=== PATIENT | male | born 1950 | race Caucasian/White ===

== ENCOUNTER 2017-05-02 16:35 | Inpatient (IN) | payer MEDICARE, OTHER ==
[~2017-05-02] VITALS: Ht 177.8 cm; Wt 115.7 kg
[~2017-05-02 16:35] MED LIST: ASPI-621 PO; ASPI325T17 PO; CHOL100011 PO; CLON1TAB23 PO; DONE5TAB14 PO; ESOM20CA PO; HYDR25TA11 PO; IRBE300T16 PO; LAMO100T63 PO; METO-99 PO; METO25TA35 PO; OMEG1CAP34 PO; PARO40TA PO; POTA20TA91 PO; ROSU20TA PO; TICA90TA PO
[2017-05-02 18:04] LABS: HEMATOCRIT 45.7 % (39.2-51.8); HEMOGLOBIN 15.6 g/dL (13.7-18.0); WHITE BLOOD COUNT 7.2 x10^3/uL (3.4-10)
[2017-05-02 18:11] LABS: ASPARTATE AMINO TRANSFERASE 26 U/L (15-37); BLOOD UREA NITROGEN 9 mg/dL (7-18)
[2017-05-02 18:19] LABS: IS PT STATUS REG ER OR PRE ER? YES
[2017-05-02] MEDS ORDERED: ASPIRIN 81 MG TABLET CHEW ONE (18:23)
[2017-05-02] MEDS ORDERED: PARO40TA3 PO (18:57)
[2017-05-02] MEDS ORDERED: ATOR40TA78 PO (18:57)
[2017-05-02] MEDS ORDERED: METO25TA35 PO (18:57)
[2017-05-02] MEDS ORDERED: HYDR12.58 PO (18:57)
[2017-05-02] MEDS ORDERED: CLON-364 PO (18:57)
[2017-05-02] MEDS ORDERED: ESOM20CA PO (18:57)
[2017-05-02] MEDS ORDERED: CLOP75TA PO (18:57)
[2017-05-02] MEDS ORDERED: ASPI-496 PO (18:57)
[2017-05-02] MEDS ORDERED: DILT180C59 PO (18:57)
[2017-05-02] MEDS ORDERED: POTA20TA14 PO (18:57)
[2017-05-02] MEDS ORDERED: LAMO100T PO (18:57)
[2017-05-02] MEDS ORDERED: MULT-717 PO (18:57)
[2017-05-02] MEDS ORDERED: IRBE150T25 PO (18:57)
[2017-05-02] MEDS ORDERED: ASPIRIN 325 MG TABLET PO ONE (19:00)
[2017-05-02] MEDS ORDERED: ENOXAPARIN 120MG/0.8ML SQ ONE (19:30)
[2017-05-02 20:03] VITALS: BP 133/75
[2017-05-02 20:11] VITALS: BP 133/73
[2017-05-02] MEDS ORDERED: NITROGLYCERIN 0.4 MG BOTTLE (25 TABS) SL PRN (21:00)
[2017-05-02] MEDS ORDERED: POLYETHYLENE GLYCOL 17 GM PACKET PO PRN (21:00)
[2017-05-02] MEDS ORDERED: MORPHINE SULFATE 4 MG/ML, 1ML IVPush PRN (21:00)
[2017-05-02] MEDS ORDERED: ACETAMINOPHEN 325 MG TABLET PO PRN (21:00)
[2017-05-02] MEDS ORDERED: ONDANSETRON 2MG/ML, 2ML IVPush PRN (21:00)
[2017-05-02] MEDS ORDERED: BISACODYL 10 MG SUPP PR PRN (21:00)
[2017-05-02] MEDS: SODIUM CHLORIDE FLUSH 10ML SYR IVF SCH (22:16)
[2017-05-02] MEDS: POTASSIUM CHLORIDE 20 MEQ TAB.ER.PRT PO SCH (22:16)
[2017-05-02] MEDS: ATORVASTATIN 40 MG TABLET PO SCH (22:16)
[2017-05-02] MEDS ORDERED: TRAZ100T15 PO (22:18)
[2017-05-02 22:28] VITALS: BP_SYST 111; BP_SYST 129; BP_SYST 138; BP_DIAS 73; BP_DIAS 75; BP_DIAS 84
[2017-05-02] MEDS ORDERED: TRAZ50TA18 PO (22:45)
[2017-05-02] MEDS ORDERED: TRAZODONE 50MG TABLET ONE (22:48)
[2017-05-02] MEDS: TRAZODONE 50MG TABLET PO PRN (22:51)
[2017-05-03 00:48] VITALS: BP 107/59
[2017-05-03 00:56] LABS: IS PT STATUS REG ER OR PRE ER? NO
[2017-05-03 05:55] LABS: ASPARTATE AMINO TRANSFERASE 19 U/L (15-37); BLOOD UREA NITROGEN 12 mg/dL (7-18)
[2017-05-03 06:00] LABS: IS PT STATUS REG ER OR PRE ER? NO
[2017-05-03 07:27] VITALS: BP 139/79
[2017-05-03] MEDS ORDERED: ENOXAPARIN 120MG/0.8ML SQ SCH (07:30)
[2017-05-03] MEDS: PANTOPROZOLE 40MG TABLET PO SCH (08:35)
[2017-05-03] MEDS: SENNA/DOCUSATE TABLET PO SCH (08:36)
[2017-05-03] MEDS: ASPIRIN 81 MG TABLET EC PO SCH (08:36)
[2017-05-03] MEDS: CLOPIDOGREL 75 MG TABLET PO SCH (08:36)
[2017-05-03] MEDS: MULTIVITAMINS/MINERALS TABLET PO SCH (08:37)
[2017-05-03] MEDS: IRBESARTAN 150 MG TABLET PO SCH (08:37)
[2017-05-03] MEDS ORDERED: REGADENOSON 0.4 MG/5 ML SYRINGE ONE (08:37)
[2017-05-03] MEDS: HYDROCHLOROTHIAZIDE 12.5 MG CAPSULE PO SCH (08:38)
[2017-05-03] MEDS: POTASSIUM CHLORIDE 20 MEQ TAB.ER.PRT PO SCH ×2 (08:39→20:14)
[2017-05-03] MEDS: METOPROLOL TARTRATE 25 MG TABLET PO SCH ×2 (08:39→20:13)
[2017-05-03] MEDS: LAMOTRIGINE 100 MG TABLET PO SCH (08:39)
[2017-05-03] MEDS: PAROXETINE 20 MG TABLET PO SCH (08:43)
[2017-05-03] MEDS: SODIUM CHLORIDE FLUSH 10ML SYR IVF SCH ×2 (08:50→20:14)
[2017-05-03] MEDS ORDERED: METOPROLOL TARTRATE 25 MG TABLET PO SCH (09:00)
[2017-05-03] MEDS ORDERED: DILTIAZEM CD 180 MG CAP.ER.24H PO SCH (09:00)
[2017-05-03 15:00] VITALS: BP 131/62
[2017-05-03 19:46] VITALS: BP 119/68
[2017-05-03] MEDS: ATORVASTATIN 40 MG TABLET PO SCH (20:13)
[2017-05-03] MEDS: TRAZODONE 50MG TABLET PO PRN (20:13)
[2017-05-04 02:26] VITALS: BP 120/77
[2017-05-04 07:09] VITALS: BP 122/76
[2017-05-04] MEDS: IRBESARTAN 150 MG TABLET PO SCH (08:52)
[2017-05-04] MEDS: PANTOPROZOLE 40MG TABLET PO SCH (08:52)
[2017-05-04] MEDS: ASPIRIN 81 MG TABLET EC PO SCH (08:52)
[2017-05-04] MEDS: METOPROLOL TARTRATE 25 MG TABLET PO SCH (08:52)
[2017-05-04] MEDS: LAMOTRIGINE 100 MG TABLET PO SCH (08:52)
[2017-05-04] MEDS: PAROXETINE 20 MG TABLET PO SCH (08:53)
[2017-05-04] MEDS: SODIUM CHLORIDE FLUSH 10ML SYR IVF SCH (08:53)
[2017-05-04] MEDS: SENNA/DOCUSATE TABLET PO SCH (08:53)
[2017-05-04] MEDS: MULTIVITAMINS/MINERALS TABLET PO SCH (08:53)
[2017-05-04] MEDS: POTASSIUM CHLORIDE 20 MEQ TAB.ER.PRT PO SCH (08:53)
[2017-05-04] MEDS: CLOPIDOGREL 75 MG TABLET PO SCH (08:53)
[2017-05-04] MEDS: HYDROCHLOROTHIAZIDE 12.5 MG CAPSULE PO SCH (08:53)
[2017-05-04] MEDS ORDERED: ENOXAPARIN 40 MG/0.4 ML SQ SCH (09:00)
[2017-05-04] MEDS ORDERED: METO25TA35 PO (12:46)
== END 2017-05-04 14:00 | disposition home or self-care (01) | DRG 281 ==
LOC: ED 18:07 → EDIP 19:01 → 5SO 19:57 → DCLOUNGE 05-04 13:50
PROVIDERS: ADMIT Internal Medicine; ATTEND Internal Medicine
DX: I21.3 ST elevation (STEMI) myocardial infarction of unspecified site (principal); E44.1 Mild protein-calorie malnutrition; J44.9 Chronic obstructive pulmonary disease, unspecified; I10 Essential (primary) hypertension; E78.5 Hyperlipidemia, unspecified; G47.33 Obstructive sleep apnea (adult) (pediatric); E66.9 Obesity, unspecified; F32.9 Major depressive disorder, single episode, unspecified; H91.90 Unspecified hearing loss, unspecified ear; I25.2 Old myocardial infarction; I95.1 Orthostatic hypotension; Z79.82 Long term (current) use of aspirin; Z82.49 Family history of ischemic heart disease and other diseases of the circulatory system; Z87.891 Personal history of nicotine dependence; Z95.5 Presence of coronary angioplasty implant and graft; Z79.02 Long term (current) use of antithrombotics/antiplatelets; Z79.899 Other long term (current) drug therapy; Z68.36 Body mass index [BMI] 36.0-36.9, adult; I25.119 Atherosclerotic heart disease of native coronary artery with unspecified angina pectoris; R01.1 Cardiac murmur, unspecified; R06.00 Dyspnea, unspecified
CPT/HCPCS: 36415; 71020; 78452; 80053; 83880; 84439; 84443; 84484; 85025; 85379; 93005; 93017; 93306; 96372; J1650; J2785; A9502; C9898

== ENCOUNTER 2017-07-19 00:13 | Emergency (ER) | payer MEDICARE, OTHER ==
[~2017-07-19] VITALS: Ht 180.3 cm; Wt 115.5 kg
[~2017-07-19 00:13] MED LIST changes: +ASPI-496 PO; +ATOR40TA78 PO; +CLON-364 PO; +CLOP75TA PO; +DILT180C59 PO; +HYDR12.58 PO; +IRBE150T25 PO; +LAMO100T PO; +MULT-717 PO; +PARO40TA3 PO; +POTA20TA14 PO; +TRAZ100T15 PO; +TRAZ50TA18 PO
[2017-07-19] MEDS ORDERED: FLUORESCEIN OPHTHALMIC 1 MG STRIP ONE (00:17)
[2017-07-19] MEDS ORDERED: PROPARACAINE OPHTH 0.5%, 15ML ONE (00:17)
[2017-07-19 00:19] VITALS: BP 134/70
[2017-07-19] MEDS ORDERED: PROPARACAINE OPHTH 0.5%, 15ML EACHEYE ONE (01:00)
[2017-07-19] MEDS ORDERED: FLUORESCEIN OPHTHALMIC 1 MG STRIP EACHEYE ONE (01:00)
== END 2017-07-19 02:28 | disposition home or self-care (01) ==
LOC: ED 01:22
DX: T15.01XA Foreign body in cornea, right eye, initial encounter (principal); E78.5 Hyperlipidemia, unspecified; I10 Essential (primary) hypertension; I25.10 Atherosclerotic heart disease of native coronary artery without angina pectoris; X58.XXXA Exposure to other specified factors, initial encounter; Y93.89 Activity, other specified; Y92.89 Other specified places as the place of occurrence of the external cause; Y99.9 Unspecified external cause status
CPT/HCPCS: 65220; 99284